=== PATIENT | female | born 1980 | race Caucasian/White ===

== ENCOUNTER → 2017-04-27 | Outpatient (CLI) | payer OTHER | LOC: FIMAGING 09:21 | PROVIDERS: ATTEND Student in an Organized Health Care Education/Training Program | DX: O09.521 Supervision of elderly multigravida, first trimester (principal); O34.219 Maternal care for unspecified type scar from previous cesarean delivery; Z3A.11 11 weeks gestation of pregnancy; Z86.32 Personal history of gestational diabetes ==